=== PATIENT | female | born 1980 | race Caucasian/White ===

== ENCOUNTER → 2016-11-15 | Outpatient (CLI) | payer OTHER ==
[~2016-11-15] MED LIST: HAIRTAB5 PO; IBUP100SUS PO; MIRA33504 PO; PAXI20TA29 PO; PERCOCET PO; PRENTAB9 PO; VITA10002 PO
== END ==
LOC: M WUC 16:55
PROVIDERS: ATTEND Dentist
DX: Z72.9 Problem related to lifestyle, unspecified (principal)

== ENCOUNTER → 2017-01-09 | Outpatient (REF) | payer OTHER ==
[2017-01-09 13:14] LABS: BASO % 0.6 % (0.0-1.0); EOS # 0.1 K/mm3 (0.0-0.50); EOS % 1.7 % (0.0-3.0); LARGE UNSTAINED CELL # 0.1 K/mm3 (0.0-0.4); LARGE UNSTAINED CELL % 1.6 % (0.0-4.0); LYMPH # 1.4 K/mm3 (1.5-4.5); LYMPH % 34.2 % (24.0-44.0); MEAN CORPUSCULAR HEMOGLOBIN 31.2 pg (27.0-33.0); MEAN CORPUSCULAR HGB CONC 33.6 g/dl (32.0-36.5); MEAN CORPUSCULAR VOLUME 92.9 fl (80.0-96.0); MONO # 0.3 K/mm3 (0.0-0.8); MONO % 6.5 % (0.0-5.0); NEUTROPHILS # 2.2 K/mm3 (1.8-7.7); NEUTROPHILS % 55.4 % (36.0-66.0); PLATELET COUNT, AUTOMATED 371 k/mm3 (150-450)
[2017-01-09 13:51] LABS: ALBUMIN 4.1 GM/DL (3.2-5.2); ALBUMIN/GLOBULIN RATIO 1.46 (1.00-1.93); ALKALINE PHOSPHATASE 59 U/L (45-117); ALT/SGPT 16 U/L (12-78); ANION GAP 7 MEQ/L (8-16); AST/SGOT 12 U/L (15-37); BILIRUBIN,TOTAL 0.4 MG/DL (0.2-1.0); BLOOD UREA NITROGEN 12 MG/DL (7-18); CALCIUM LEVEL 9.3 MG/DL (8.5-10.1); CARBON DIOXIDE LEVEL 29 MEQ/L (21-32); CHLORIDE LEVEL 107 MEQ/L (98-107); CREATININE FOR GFR 0.61 MG/DL (0.55-1.02); GLOMERULAR FILTRATION RATE > 60.0 (>60); GLUCOSE, FASTING 72 MG/DL (70-105); MAGNESIUM LEVEL 2.4 MG/DL (1.8-2.4); POTASSIUM SERUM 4.5 MEQ/L (3.5-5.1); SODIUM LEVEL 143 MEQ/L (136-145); TOTAL PROTEIN 6.9 GM/DL (6.4-8.2)
== END ==
LOC: M LABNEURO 12:37
PROVIDERS: ATTEND Psychiatry & Neurology Neurology
DX: R42 Dizziness and giddiness (principal)

== ENCOUNTER 2017-08-20 07:01 | Day surgery (SDC) | payer OTHER ==
[2017-08-20] MEDS: LR 1,000 ML IV (07:45)
[2017-08-20] MEDS ORDERED: LIDOCAINE 1% MDV 20ML VIAL SQ (07:45)
[2017-08-20] MEDS ORDERED: MIDAZOLAM INJ 2 MG/2 ML VIAL (J2250) As Ordered (07:47)
[2017-08-20] MEDS ORDERED: fentaNYL 100 MCG/2 ML INJECTION (J3010) As Ordered (07:47)
[2017-08-20] MEDS ORDERED: SUCCINYLCHOLINE 100 MG/5 ML SYRINGE (J0330) As Ordered (08:18)
[2017-08-20] MEDS ORDERED: ROCURONIUM BROMIDE 50 MG/5 ML VIAL As Ordered (08:18)
[2017-08-20] MEDS ORDERED: LIDOCAINE 2% INJ 100 MG/5 ML SDV (FOR ANES.) As Ordered (08:18)
[2017-08-20] MEDS ORDERED: PROPOFOL 200 MG/20 ML VIAL As Ordered (08:18)
[2017-08-20] MEDS ORDERED: ONDANSETRON 4MG/2ML VIAL (J2405) As Ordered (08:50)
[2017-08-20] MEDS ORDERED: dexameTHASONE 4 MG/ML 1ML VIAL (J1100) As Ordered ×2 (08:50)
[2017-08-20] MEDS ORDERED: GLYCOPYRROLATE INJ 0.2 MG/ML 2 ML VIAL As Ordered (08:50)
[2017-08-20] MEDS ORDERED: PHENYLephrine HCL 500 MCG/5 ML (100MCG/ML) SYRINGE (J2370) As Ordered (08:51)
[2017-08-20] MEDS: BUPIVACAINE HCL 0.5% 10 ML VIAL As Ordered (08:56)
[2017-08-20] MEDS ORDERED: KETOROLAC 30 MG/ML VIAL (J1885) As Ordered (09:19)
[2017-08-20] MEDS ORDERED: IBUPROFEN 800 MG TAB PO (09:30)
[2017-08-20] MEDS ORDERED: PERCOCET 5MG/325MG TAB PO (09:30)
[2017-08-20] MEDS ORDERED: HYDROcodone/APAP LIQUID 7.5-325MG 15ML UDC (LORTAB ELIXIR) PO (09:30)
[2017-08-20] MEDS: KETOROLAC 30 MG/ML VIAL (J1885) IV (09:33)
[2017-08-20] MEDS: PERCOCET 5MG/325MG TAB PO (09:42)
[2017-08-20] MEDS ORDERED: ONDANSETRON 4MG/2ML VIAL (J2405) IV (09:45)
[2017-08-20] MEDS ORDERED: LR 1,000 ML IV (09:45)
[2017-08-20] MEDS ORDERED: HYDROmorphone HCL 1 MG/ML SYRINGE (J1170) IV (09:45)
[2017-08-20] MEDS ORDERED: fentaNYL 100 MCG/2 ML INJECTION (J3010) IV (09:45)
== END 2017-08-20 10:20 | disposition home or self-care (01) ==
LOC: M SDC 07:01
DX: J35.01 Chronic tonsillitis (principal); K58.9 Irritable bowel syndrome, unspecified
CPT/HCPCS: 42826

== ENCOUNTER 2020-09-26 15:45 | Emergency (ER) | payer OTHER ==
[~2020-09-26] VITALS: Ht 162.6 cm; Wt 60.9 kg
[~2020-09-26 15:45] MED LIST changes: +CYAN100049 PO; +IBUP100S44 PO; -IBUP100SUS PO; +OXYC1TAB23 PO; -PERCOCET PO; -VITA10002 PO
[2020-09-26] MEDS ORDERED: PANT40TA29 (15:58)
[2020-09-26] MEDS ORDERED: FLUORESCEIN OPHTH 1 MG STRIP OS ONE (18:15)
[2020-09-26] MEDS ORDERED: TETRACAINE 0.5% OPHTH SOLN 4ML OS ONE (18:15)
[2020-09-26] MEDS ORDERED: MOXI0.5S OS (18:49)
[2020-09-26] MEDS ORDERED: OFLOXACIN 0.3 % (OCUFLOX) OPTH SOL 5ML OS STA (18:55)
[2020-09-26 19:26] VITALS: BP 128/68
== END 2020-09-26 19:53 | disposition home or self-care (01) ==
LOC: M ED 15:45
DX: S05.02XA Injury of conjunctiva and corneal abrasion without foreign body, left eye, initial encounter (principal); X58.XXXA Exposure to other specified factors, initial encounter; Y92.89 Other specified places as the place of occurrence of the external cause; F17.210 Nicotine dependence, cigarettes, uncomplicated

== ENCOUNTER → 2020-10-20 | Outpatient (CLI) | payer OTHER ==
[~2020-10-20] MED LIST changes: +METHACHOLINE KIT (J7674) INH ONE; +MOXI0.5S OS; +PANT40TA29
--- NOTE | 2020-10-20 10:42 | PFTRPT ---
Site: [facility], [address], [place], [address] ID: [id number] Name: KIMBERLY DAMON Visit Date: 10/20/2020 Second ID: [id number] Referring Doctor: Blake Lazaro MD Reviewing Doctor: Mitul Heaton MD Data Processing Clerk: Roma SAMPSON RRT Age: 40 : 1980 Sex: Female Race: Height: 64.00 Inches Weight: 134.00 Lbs BSA: 1.65 Order IDs: [id number] Requested Test(s): <RESP-PFT.METH CHAL> Diagnosis: R06.00 of albuterol for post bronchodilator. Review Status: Not Reviewed Pre-Bronch Post-Bronch Pred Actual %Pred Actual %Chng SPIROMETRY FVC (L) 3.69 3.84 104 3.75 -2 FEV1 (L) 3.00 2.95 98 2.78 -5 FEV1/FVC (%) 82 77 93 74 -3 FEF 25% (L/sec) 5.44 5.50 101 5.37 -2 FEF 50% (L/sec) 4.19 3.03 72 2.57 -15 FEF 75% (L/sec) 1.65 1.06 63 0.75 -29 FEF 25-75% (L/sec) 3.10 2.43 78 1.99 -18 FEF Max (L/sec) 6.96 6.78 97 6.25 -7 FIVC (L) 3.62 3.67 1 FIF 50% (L/sec) 3.73 4.03 107 4.07 1 FIF Max (L/sec) 4.05 4.12 1 Expiratory Time (sec) 6.77 6.69 -1 Back Extrap Vol (L) 0.11 0.08 -24 Time To FEFmax (sec) 0.086 0.074 -14
== END ==
LOC: M CARPUL 09:39
PROVIDERS: ATTEND Allergy & Immunology Allergy
DX: R06.00 Dyspnea, unspecified (principal)
CPT/HCPCS: 94070; 95070; J7674

== ENCOUNTER 2020-11-13 09:53 | Emergency (ER) | payer OTHER ==
[~2020-11-13] VITALS: Ht 162.6 cm; Wt 60.7 kg
[~2020-11-13 09:53] MED LIST changes: -METHACHOLINE KIT (J7674) INH ONE
[2020-11-13] MEDS ORDERED: PLEC3TAB (09:59)
[2020-11-13 11:07] LABS: BASO % 0.7 % (0.0-1.0); EOS # 0.1 10^3/uL (0.0-0.5); EOS % 2.3 % (0.0-3.0); HEMATOCRIT 38.1 % (36.0-47.0); HEMOGLOBIN 12.7 g/dl (12.0-15.5); LYMPH # 1.4 10^3/uL (1.5-5.0); LYMPH % 32.6 % (24.0-44.0); MEAN CORPUSCULAR HEMOGLOBIN 30.8 pg (27.0-33.0); MEAN CORPUSCULAR HGB CONC 33.3 g/dl (32.0-36.5); MEAN CORPUSCULAR VOLUME 92.3 fl (80.0-96.0); MONO # 0.4 10^3/uL (0.0-0.8); MONO % 10.1 % (2.0-8.0); NEUTROPHILS # 2.3 10^3/uL (1.5-8.5); NEUTROPHILS % 53.8 % (36.0-66.0); PLATELET COUNT, AUTOMATED 348 10^3/uL (150-450); RED BLOOD COUNT 4.13 10^6/uL (4.00-5.40); WHITE BLOOD COUNT 4.3 10^3/uL (4.0-10.0)
[2020-11-13 11:26] LABS: ALBUMIN 3.9 GM/DL (3.2-5.2); ALT/SGPT 40 U/L (12-78); BILIRUBIN,DIRECT < 0.1 MG/DL (0.0-0.2); BILIRUBIN,TOTAL 0.3 MG/DL (0.2-1.0); BLOOD UREA NITROGEN 12 MG/DL (7-18); CALCIUM LEVEL 8.9 MG/DL (8.5-10.1); CARBON DIOXIDE LEVEL 30 MEQ/L (21-32); CHLORIDE LEVEL 109 MEQ/L (98-107); CREATININE FOR GFR 0.64 MG/DL (0.55-1.30); GLOMERULAR FILTRATION RATE > 60.0 (>58); GLUCOSE, FASTING 71 MG/DL (70-100); LIPASE 192 U/L (73-393); POTASSIUM SERUM 4.3 MEQ/L (3.5-5.1); SODIUM LEVEL 141 MEQ/L (136-145); TOTAL PROTEIN 6.5 GM/DL (6.4-8.2)
--- NOTE | 2020-11-13 11:35 | REP ---
INDICATION: lower abd pain, constipation. COMPARISON: None. TECHNIQUE: Two views FINDINGS: Gas and stool scattered in the colon without dilatation. No dilated small bowel loops or air-fluid levels. There is a paucity of gas in the small bowel overall which is a nonspecific finding. Few pelvic phleboliths are evident. There are no calcifications over the renal fossa the, expected course of the ureters or bladder that would be suggestive of nephroureterolithiasis. Metallic Essure implants are identified bilaterally. Visualized bones are unremarkable. IMPRESSION: 1. Essure implants in the pelvis bilaterally with a few pelvic phleboliths but no abnormal abdominal or pelvic calcifications. 2. Nonspecific gas pattern without obstruction, mass or free air. 3. Bones unremarkable. <Electronically signed by Javan Tafoya > 11/13/20 [id number]
--- NOTE | 2020-11-13 12:09 | REP ---
INDICATION: right lower abd pain r/o ovarian cyst. COMPARISON: KUB this TECHNIQUE: Transabdominal and endovaginal probes were utilized. Color Doppler of the ovaries also performed. FINDINGS: Bladder is under filled measuring 8.7 x 6.3 x 1.2 cm. Uterus is retroverted measuring 6.2 x 4.1 x 4.7 cm in greatest diameter. Endometrial stripe has a thickness of up to 14 mm there is a hypoechoic focus in the right-sided the uterus 1.6 x 1.5 cm it may reflect fibroid in the subserosal region. There is no abnormal calcification visible in the uterus. Trace amount of free fluid in the cul-de-sac. The left ovary is 1.9 x 1.6 x 1.4 cm with no focal abnormality. Color flow normal. Doppler shows resistive index 0.63. No adjacent free fluid to that ovary. The right ovary is 2.9 x 2.8 x 1.6 cm. It has a dominant follicle with some internal echoes and measuring 1.9 x 1.6 x 1.4 cm and Doppler shows resistive index of 0.67 this suggest a hemorrhagic follicle. I do not see fluid adjacent to the ovary but there is some in the cul-de-sac and a small volume. IMPRESSION: 1. Retroverted uterus with endometrial stripe up to 1.4 cm thickness with a 1.6 x 1.5 cm hypoechoic fibroid subserosal right uterine aspect. Trace fluid in the cul-de-sac. 2. Normal left ovary and ovarian Doppler. 3. Right ovary with a hemorrhagic follicle 1.9 x 1.6 x 1.4 cm but with normal Doppler tracing. No evidence for torsion. <Electronically signed by Javan Tafoya > 11/13/20 [id number]
[2020-11-13] MEDS ORDERED: ONDA4TAB6 PO (12:26)
[2020-11-13 12:38] VITALS: BP 121/64
== END 2020-11-13 12:40 | disposition home or self-care (01) ==
LOC: M ED 09:53
DX: N83.201 Unspecified ovarian cyst, right side (principal); K21.9 Gastro-esophageal reflux disease without esophagitis; K58.9 Irritable bowel syndrome, unspecified; Z79.899 Other long term (current) drug therapy; F17.210 Nicotine dependence, cigarettes, uncomplicated

== ENCOUNTER → 2020-12-20 | Outpatient (CLI) | payer OTHER ==
[~2020-12-20] MED LIST changes: +ONDA4TAB6 PO; +PLEC3TAB
== END ==
LOC: M LABSMTC 10:17
PROVIDERS: ATTEND Anesthesiology
DX: Z11.52 Encounter for screening for COVID-19 (principal)

== ENCOUNTER 2020-12-24 11:10 | Day surgery (SDC) | payer OTHER ==
[~2020-12-24] VITALS: Ht 162.6 cm; Wt 58.2 kg
[~2020-12-24 11:10] MED LIST changes: +LIDOCAINE 2% 100MG/5ML SDV (FOR ANES.) As Ordered ONE; +NS 1,000 ML IV ONE; +propofoL 200 MG/20 ML VIAL As Ordered ONE
--- NOTE | 2020-12-24 13:15 | ROOR ---
Patient Name: Lori Villagomez Procedure Date: 12/24/2020 12:55 PM Date of : 1980 Age: 40 Room: [facility] Gender: Female Note Status: Finalized Procedure: Upper GI endoscopy Indications: Abdominal pain, Heartburn Providers: Juan Daniel Palacios MD Referring MD: Margo Guzman Requesting Provider: Medicines: Monitored Anesthesia Care Complications: No immediate complications. Procedure: Pre-Anesthesia Assessment: - The heart rate, respiratory rate, oxygen saturations, blood pressure, adequacy of pulmonary ventilation, and response to care were monitored throughout the procedure. The Endoscope was introduced through the mouth, and advanced to the second part of duodenum. The upper GI endoscopy was accomplished without difficulty. The patient tolerated the procedure well. Findings: The examined esophagus was normal. The entire examined stomach was normal (a very small hiatal hernia is seen). Biopsies were taken with a cold forceps for Helicobacter pylori testing. The examined duodenum was normal. Biopsies for histology were taken with a cold forceps for evaluation of celiac disease. Impression: - Normal esophagus. - Very small hiatal hernia, otherwise normal stomach. Biopsied. - Normal examined duodenum. Biopsied. Recommendation: - Await pathology results. - Telephone endoscopist for pathology results in 2 weeks. - Continue present medications. Procedure Code(s): --- Professional --- 54464, Esophagogastroduodenoscopy, flexible, transoral; with biopsy, single or multiple Diagnosis Code(s): --- Professional --- R12, Heartburn R10.9, Unspecified abdominal pain CPT copyright 2019 [employer]. All rights reserved. The codes documented in this report are preliminary and upon transplant surgeon review may be revised to meet current compliance requirements. Juan Daniel Palacios MD Juan Daniel Palacios MD 12/24/2020 1:14:33 PM Electronically signed by Juan Daniel Palacios MD Number of Addenda: 0 Note Initiated On: 12/24/2020 12:55 PM Estimated Blood Loss: Estimated blood loss: none.
[2020-12-24] MEDS ORDERED: propofoL 200 MG/20 ML VIAL As Ordered ONE (13:22)
--- NOTE | 2020-12-24 13:30 | ROOR ---
Patient Name: Lori Villagomez Procedure Date: 12/24/2020 12:56 PM Date of : 1980 Age: 40 Room: [facility] Gender: Female Note Status: Finalized Procedure: Colonoscopy Indications: Generalized abdominal pain, Irritable bowel syndrome with constipation, Change in bowel habits, Occasional diarrhea Providers: Juan Daniel Palacios MD Referring MD: Margo Guzman Requesting Provider: Medicines: Monitored Anesthesia Care Complications: No immediate complications. Procedure: Pre-Anesthesia Assessment: - The heart rate, respiratory rate, oxygen saturations, blood pressure, adequacy of pulmonary ventilation, and response to care were monitored throughout the procedure. The Colonoscope was introduced through the anus and advanced to 10 cm into the ileum. The colonoscopy was performed without difficulty. The patient tolerated the procedure well. The quality of the bowel preparation was good. Findings: The perianal and digital rectal examinations were normal. Mild sigmoid diverticulosis and small internal hemorrhoids. The entire examined colon appeared normal. The terminal ileum appeared normal. Biopsies for histology were taken with a cold forceps from the entire colon for evaluation of microscopic colitis. Impression: - Mild sigmoid diverticulosis and small internal hemorrhoids. - The entire examined colon is normal. - The examined portion of the ileum was normal. - Biopsies were taken with a cold forceps from the entire colon for evaluation of microscopic colitis. - (Irritable Bowel Syndrome/IBS suspected.) Recommendation: - Telephone endoscopist for pathology results in 2 weeks. - Continue present medications. Procedure Code(s): --- Professional --- 88879, Colonoscopy, flexible; with biopsy, single or multiple Diagnosis Code(s): --- Professional --- R19.4, Change in bowel habit K58.1, Irritable bowel syndrome with constipation R10.84, Generalized abdominal pain CPT copyright 2019 [employer]. All rights reserved. The codes documented in this report are preliminary and upon animal bounty hunter review may be revised to meet current compliance requirements. Juan Daniel Palacios MD Juan Daniel Palacios MD 12/24/2020 1:30:28 PM Electronically signed by Juan Daniel Palacios MD Number of Addenda: 0 Note Initiated On: 12/24/2020 12:56 PM Estimated Blood Loss: Estimated blood loss: none.
[2020-12-24 14:07] VITALS: BP 101/57
== END 2020-12-24 14:08 | disposition home or self-care (01) ==
LOC: M OPP 11:10
PROVIDERS: ATTEND Internal Medicine Gastroenterology
DX: K58.1 Irritable bowel syndrome with constipation (principal); R10.9 Unspecified abdominal pain; R19.4 Change in bowel habit; K44.9 Diaphragmatic hernia without obstruction or gangrene; K31.89 Other diseases of stomach and duodenum; R12 Heartburn; Z79.899 Other long term (current) drug therapy

== ENCOUNTER → 2021-02-21 | Outpatient (CLI) | payer OTHER ==
[~2021-02-21] MED LIST changes: -LIDOCAINE 2% 100MG/5ML SDV (FOR ANES.) As Ordered ONE; -NS 1,000 ML IV ONE; -propofoL 200 MG/20 ML VIAL As Ordered ONE
--- NOTE | 2021-02-21 10:01 | REP ---
INDICATION: EPIGASTRIC PAIN. COMPARISON: None. TECHNIQUE: Ultrasound images of the right upper quadrant of the abdomen were obtained. FINDINGS: The liver is increased in echogenicity and size measuring 17.7 cm in vertical dimension in the midclavicular line. The gallbladder is normal. The gallbladder wall measures 2 mm in thickness. The common bile duct measures 2 mm in diameter. The visualized pancreas is unremarkable. The right kidney measures 9.3 x 4.5 x 4.1 cm. The renal parenchymal echogenicity is normal. There are no focal abnormalities. There is no hydronephrosis. IMPRESSION: 1. Enlarged fatty liver. 2. Otherwise unremarkable. <Electronically signed by Medhat Gallego > 02/21/21 0963
== END ==
LOC: M RAD 08:58
PROVIDERS: ATTEND Physician Assistant Medical
DX: R10.13 Epigastric pain (principal); R14.0 Abdominal distension (gaseous); K76.0 Fatty (change of) liver, not elsewhere classified

== ENCOUNTER → 2021-03-15 | Outpatient (CLI) | payer OTHER | LOC: M RAD 11:24 | PROVIDERS: ATTEND Physician Assistant Medical | DX: Z53.20 Procedure and treatment not carried out because of patient's decision for unspecified reasons (principal) ==

== ENCOUNTER → 2021-05-16 | Outpatient (CLI) | payer OTHER | LOC: M RAD 11:26 | PROVIDERS: ATTEND Physician Assistant Medical | DX: R10.13 Epigastric pain (principal); R68.81 Early satiety; R14.0 Abdominal distension (gaseous) | CPT/HCPCS: 78264; A9541 ==

== ENCOUNTER 2021-06-24 02:52 | Emergency (ER) | payer OTHER ==
[~2021-06-24] VITALS: Ht 162.6 cm; Wt 62.3 kg
[2021-06-24 02:53] VITALS: BP 132/70
[2021-06-24 03:48] LABS: APPEARANCE, URINE CLEAR (CLEAR); BACTERIA, URINE AUTO 1+ (NEGATIVE); BILIRUBIN, URINE AUTO NEGATIVE (NEGATIVE); BLOOD, URINE BLOOD 1+ (NEGATIVE); COLOR, URINE YELLOW (YELLOW); GLUCOSE, URINE (UA) AUTO NEGATIVE (NEGATIVE); KETONE, URINE AUTO NEGATIVE (NEGATIVE); LEUKOCYTE ESTERASE, URINE AUTO NEGATIVE (NEGATIVE); MUCUS, URINE SMALL (NEGATIVE); NITRITE, URINE AUTO NEGATIVE (NEGATIVE); PROTEIN, URINE AUTO NEGATIVE (NEGATIVE); RBC, URINE AUTO 3 /HPF (0-3); SPECIFIC GRAVITY URINE AUTO 1.009 (1.002-1.035); SQUAMOUS EPITHELIAL CELL UR AU 0 /HPF (0-6); UROBILINOGEN, URINE AUTO 0.2 mg/dL (0.0-2.0); WBC, URINE AUTO 0 /HPF (0-3)
== END 2021-06-24 04:35 | disposition left against medical advice (07) ==
LOC: M ED 02:52
DX: Z53.21 Procedure and treatment not carried out due to patient leaving prior to being seen by health care provider (principal)

== ENCOUNTER → 2022-01-11 | Outpatient (CLI) | payer OTHER ==
[~2022-01-11] MED LIST changes: +CYSTO-CONRAY II 17.2% 250ML VIAL (Q9958) As Ordered ONE
== END ==
LOC: M RADPRO 09:00
PROVIDERS: ATTEND Specialist
DX: R39.81 Functional urinary incontinence (principal); Z96.0 Presence of urogenital implants
CPT/HCPCS: 51610; 74430; Q9958

== ENCOUNTER 2022-07-03 10:58 | Emergency (ER) | payer OTHER ==
[~2022-07-03] VITALS: Ht 162.6 cm; Wt 65.0 kg
[~2022-07-03 10:58] MED LIST changes: -CYSTO-CONRAY II 17.2% 250ML VIAL (Q9958) As Ordered ONE; -PAXI20TA29 PO; +PAXI20TA30 PO
[2022-07-03 13:44] LABS: BASO % 0.5 % (0.0-1.0); EOS # 0.1 10^3/uL (0.0-0.5); EOS % 0.6 % (0.0-3.0); HEMATOCRIT 40.8 % (36.0-47.0); HEMOGLOBIN 13.7 g/dl (12.0-15.5); LYMPH # 1.9 10^3/uL (1.5-5.0); LYMPH % 24.7 % (24.0-44.0); MEAN CORPUSCULAR HEMOGLOBIN 31.1 pg (27.0-33.0); MEAN CORPUSCULAR HGB CONC 33.6 g/dl (32.0-36.5); MEAN CORPUSCULAR VOLUME 92.7 fl (80.0-96.0); MONO # 0.5 10^3/uL (0.0-0.8); MONO % 6.3 % (2.0-8.0); NEUTROPHILS # 5.2 10^3/uL (1.5-8.5); NEUTROPHILS % 67.6 % (36.0-66.0); PLATELET COUNT, AUTOMATED 348 10^3/uL (150-450); WHITE BLOOD COUNT 7.7 10^3/uL (4.0-10.0)
[2022-07-03 14:02] LABS: LIPASE 47 U/L (12-53)
[2022-07-03 14:08] LABS: ALBUMIN 3.9 G/DL (3.2-5.2); ALKALINE PHOSPHATASE 60 U/L (46-116); ALT/SGPT 11 U/L (7.0-40); AST/SGOT 17 U/L (<34); BILIRUBIN,DIRECT 0.1 MG/DL (<0.4); BILIRUBIN,TOTAL 0.5 MG/DL (0.3-1.2); BLOOD UREA NITROGEN 9 MG/DL (9-23); CALCIUM LEVEL 8.8 MG/DL (8.5-10.1); CARBON DIOXIDE LEVEL 26 MMOL/L (20-31); CHLORIDE LEVEL 103 MMOL/L (98-107); CREATININE FOR GFR 0.65 MG/DL (0.55-1.30); GLOMERULAR FILTRATION RATE > 60.0 (>58); GLUCOSE, FASTING 94 MG/DL (60-100); POTASSIUM SERUM 4.3 MMOL/L (3.5-5.1); SODIUM LEVEL 138 MMOL/L (136-145)
[2022-07-03] MEDS ORDERED: NS 1,000 ML IV ONE (14:10)
[2022-07-03] MEDS ORDERED: ISOVUE-370 76% 100ML VIAL As Ordered ONE (14:11)
[2022-07-03 15:44] LABS: TOTAL PROTEIN 6.5 G/DL (5.7-8.2)
[2022-07-03] MEDS ORDERED: FLUCONAZOLE 50MG TABLET PO ONE (17:25)
[2022-07-03 17:47] LABS: GC DNA AMPLIFICATION NEGATIVE (NEGATIVE)
[2022-07-03 18:38] VITALS: BP 135/77
== END 2022-07-03 18:35 | disposition home or self-care (01) ==
LOC: M ED 10:58
DX: R10.32 Left lower quadrant pain (principal); K21.9 Gastro-esophageal reflux disease without esophagitis
CPT/HCPCS: 36415; 74177; 76830; 76856; 80048; 80076; 81001; 83605; 83690; 85025; 87210; 87661; 87810; 87850; 93976; 99284; Q9967

== ENCOUNTER → 2022-12-25 | Day surgery (SDC) | payer OTHER ==
[~2022-12-25] VITALS: Ht 162.6 cm; Wt 63.0 kg
[~2022-12-25] MED LIST changes: +LIDOCAINE 2% 100MG/5ML SDV (FOR ANES.) As Ordered ONE; +NS 1,000 ML IV ONE; -PANT40TA29; +PANT40TA29 PO; -PLEC3TAB; +PLEC3TAB PO; +propofoL 200 MG/20 ML VIAL As Ordered ONE
[2022-12-25 11:34] VITALS: BP 127/72; TEMP 97.9; O2SAT 99
== END | disposition home or self-care (01) ==
LOC: M OPP 09:56
PROVIDERS: ATTEND Internal Medicine Gastroenterology
DX: K64.8 Other hemorrhoids (principal); K57.30 Diverticulosis of large intestine without perforation or abscess without bleeding; K63.3 Ulcer of intestine; K58.1 Irritable bowel syndrome with constipation; F17.290 Nicotine dependence, other tobacco product, uncomplicated; Z79.899 Other long term (current) drug therapy

== ENCOUNTER → 2023-02-17 | Outpatient (CLI) | payer OTHER ==
[~2023-02-17] MED LIST changes: -LIDOCAINE 2% 100MG/5ML SDV (FOR ANES.) As Ordered ONE; -NS 1,000 ML IV ONE; -propofoL 200 MG/20 ML VIAL As Ordered ONE
== END ==
LOC: M LAB 10:08
PROVIDERS: ATTEND Physician Assistant Medical
DX: R16.0 Hepatomegaly, not elsewhere classified (principal); E83.10 Disorder of iron metabolism, unspecified

== ENCOUNTER → 2023-04-05 | Outpatient (CLI) | payer OTHER ==
[~2023-04-05] MED LIST changes: +FAMO40TA3
[2023-04-05 16:32] LABS: FOLATE 18.58 NG/ML (>5.4)
[2023-04-07 13:09] LABS: IgG P18 AB Absent (.); IgG P23 AB Absent (.); IgG P28 AB Absent (.); IgG P30 AB Absent (.); IgG P39 AB Absent (.); IgG P41 AB Absent (.); IgG P45 AB Absent (.); IgG P66 AB Absent (.); IgG P93 AB Absent (.); IgM P23 AB Absent (.); IgM P39 AB Absent (.); IgM P41 AB Absent (.); LYME IgG WB INTERPRETATION Negative (.); LYME IgM WB INTERPRETATION Negative (.)
== END ==
LOC: M PLALAB 13:02
PROVIDERS: ATTEND Psychiatry & Neurology Neurology
DX: D51.9 Vitamin B12 deficiency anemia, unspecified (principal); Z11.9 Encounter for screening for infectious and parasitic diseases, unspecified

== ENCOUNTER 2023-04-16 12:30 | Day surgery (SDC) | payer OTHER ==
[~2023-04-16] VITALS: Ht 162.6 cm; Wt 60.8 kg
[~2023-04-16 12:30] MED LIST changes: +NS 1,000 ML IV ONE
[2023-04-16] MEDS ORDERED: fentaNYL 100 MCG/2 ML INJECTION As Ordered ONE (12:46)
[2023-04-16] MEDS ORDERED: propofoL 200 MG/20 ML VIAL As Ordered ONE (14:24)
[2023-04-16 14:39] VITALS: TEMP 98.7
[2023-04-16 15:00] VITALS: BP 102/66; O2SAT 100
== END 2023-04-16 15:04 | disposition home or self-care (01) ==
LOC: M OPP 12:30
PROVIDERS: ATTEND Internal Medicine Gastroenterology
DX: K57.30 Diverticulosis of large intestine without perforation or abscess without bleeding (principal); K63.5 Polyp of colon; R10.13 Epigastric pain; Z87.891 Personal history of nicotine dependence; Z79.1 Long term (current) use of non-steroidal anti-inflammatories (NSAID); Z79.899 Other long term (current) drug therapy

== ENCOUNTER 2023-05-07 09:18 | Emergency (ER) | payer OTHER ==
[~2023-05-07] VITALS: Ht 162.6 cm; Wt 62.4 kg
[~2023-05-07 09:18] MED LIST changes: -NS 1,000 ML IV ONE
[2023-05-07] MEDS ORDERED: HYDR-3363 (09:26)
[2023-05-07] MEDS ORDERED: RIZA5TAB2 (09:26)
[2023-05-07] MEDS ORDERED: NS 1,000 ML IV ONE (11:30)
[2023-05-07 11:59] LABS: BASO # 0.1 10^3/uL (0.0-0.2); BASO % 0.8 % (0.0-1.0); EOS # 0.1 10^3/uL (0.0-0.5); EOS % 1.3 % (0.0-3.0); HEMATOCRIT 39.5 % (36.0-47.0); HEMOGLOBIN 13.3 g/dl (12.0-15.5); LYMPH # 1.8 10^3/uL (1.5-5.0); LYMPH % 19.6 % (24.0-44.0); MEAN CORPUSCULAR HEMOGLOBIN 30.9 pg (27.0-33.0); MEAN CORPUSCULAR HGB CONC 33.7 g/dl (32.0-36.5); MEAN CORPUSCULAR VOLUME 91.9 fl (80.0-96.0); MONO # 0.6 10^3/uL (0.0-0.8); MONO % 6.9 % (2.0-8.0); NEUTROPHILS # 6.6 10^3/uL (1.5-8.5); NEUTROPHILS % 71.1 % (36.0-66.0); PLATELET COUNT, AUTOMATED 380 10^3/uL (150-450); WHITE BLOOD COUNT 9.2 10^3/uL (4.0-10.0)
[2023-05-07] MEDS ORDERED: ISOVUE-370 76% 100ML VIAL As Ordered ONE (11:59)
[2023-05-07] MEDS ORDERED: DEXA6TAB PO (13:16)
[2023-05-07] MEDS ORDERED: BENZ200C70 PO (13:16)
[2023-05-07 13:33] VITALS: BP 118/74; TEMP 98; O2SAT 99
== END 2023-05-07 13:34 | disposition home or self-care (01) ==
LOC: M ED 09:18
DX: U07.1 COVID-19 (principal); J84.9 Interstitial pulmonary disease, unspecified; K21.9 Gastro-esophageal reflux disease without esophagitis; K58.9 Irritable bowel syndrome, unspecified; G43.909 Migraine, unspecified, not intractable, without status migrainosus; J45.909 Unspecified asthma, uncomplicated; Z79.811 Long term (current) use of aromatase inhibitors; Z79.52 Long term (current) use of systemic steroids; Z79.899 Other long term (current) drug therapy
CPT/HCPCS: 36415; 71046; 71275; 80047; 85025; 86140; 99284; Q9967

== ENCOUNTER → 2023-06-09 | Outpatient (CLI) | payer OTHER ==
[~2023-06-09] MED LIST changes: +BENZ200C70 PO; +DEXA6TAB PO; +HYDR-3363; +RIZA5TAB2
[2023-06-09 11:27] LABS: HEMATOCRIT 40.8 % (36.0-47.0); HEMOGLOBIN 13.6 g/dl (12.0-15.5); MEAN CORPUSCULAR HEMOGLOBIN 30.7 pg (27.0-33.0); MEAN CORPUSCULAR HGB CONC 33.3 g/dl (32.0-36.5); MEAN CORPUSCULAR VOLUME 92.1 fl (80.0-96.0); PLATELET COUNT, AUTOMATED 369 10^3/uL (150-450); RED BLOOD COUNT 4.43 10^6/uL (4.00-5.40); WHITE BLOOD COUNT 4.3 10^3/uL (4.0-10.0)
[2023-06-09 11:43] LABS: INR 0.98; PROTHROMBIN TIME 12.7 SECONDS (12.5-14.5)
[2023-06-09 11:44] LABS: PARTIAL THROMBOPLASTIN TIME 24.8 SECONDS (24.8-34.2)
== END ==
LOC: M LAB 11:01
PROVIDERS: ATTEND Physician Assistant Medical
DX: R16.0 Hepatomegaly, not elsewhere classified (principal)

== ENCOUNTER → 2023-06-21 | Outpatient (CLI) | payer OTHER ==
[~2023-06-21] MED LIST changes: +LIDOCAINE 1% MDV 20ML VIAL As Ordered ONE
[2023-06-21 09:05] VITALS: TEMP 97.5
[2023-06-21 11:20] VITALS: BP 100/61; O2SAT 99
== END ==
LOC: M IRPRO 08:53
PROVIDERS: ATTEND Physician Assistant Medical
DX: R16.0 Hepatomegaly, not elsewhere classified (principal)

== ENCOUNTER → 2023-07-26 | Outpatient (CLI) | payer OTHER ==
[~2023-07-26] MED LIST changes: -LIDOCAINE 1% MDV 20ML VIAL As Ordered ONE
== END ==
LOC: M RAD 17:44
PROVIDERS: ATTEND Internal Medicine Pulmonary Disease
DX: R91.8 Other nonspecific abnormal finding of lung field (principal); J47.9 Bronchiectasis, uncomplicated

== ENCOUNTER → 2023-08-21 | Outpatient (CLI) | payer OTHER | LOC: M CARPUL 09:38 | PROVIDERS: ATTEND Internal Medicine Pulmonary Disease | DX: R91.8 Other nonspecific abnormal finding of lung field (principal) ==

== ENCOUNTER 2023-09-25 17:23 | Emergency (ER) | payer OTHER ==
[~2023-09-25] VITALS: Ht 162.6 cm; Wt 64.4 kg
[~2023-09-25 17:23] MED LIST changes: +ONDA-282 PO; -ONDA4TAB6 PO
[2023-09-25 18:07] LABS: BASO # 0.1 10^3/uL (0.0-0.2); BASO % 0.6 % (0.0-1.0); EOS # 0.1 10^3/uL (0.0-0.5); EOS % 0.7 % (0.0-3.0); HEMATOCRIT 41.3 % (36.0-47.0); HEMOGLOBIN 13.9 g/dl (12.0-15.5); LYMPH % 22.5 % (24.0-44.0); MEAN CORPUSCULAR HGB CONC 33.7 g/dl (32.0-36.5); MEAN CORPUSCULAR VOLUME 92.2 fl (80.0-96.0); MONO # 0.5 10^3/uL (0.0-0.8); MONO % 6.1 % (2.0-8.0); NEUTROPHILS # 6.2 10^3/uL (1.5-8.5); NEUTROPHILS % 69.9 % (36.0-66.0); PLATELET COUNT, AUTOMATED 389 10^3/uL (150-450); RED BLOOD COUNT 4.48 10^6/uL (4.00-5.40); WHITE BLOOD COUNT 8.9 10^3/uL (4.0-10.0)
[2023-09-25 18:25] LABS: LIPASE 53 U/L (12-53)
[2023-09-25 18:36] LABS: HCG, SERUM QUALITATIVE NEGATIVE (NEGATIVE)
[2023-09-25 18:37] LABS: ALBUMIN 4.4 G/DL (3.2-5.2); ALKALINE PHOSPHATASE 70 U/L (46-116); ALT/SGPT 19 U/L (7.0-40); AST/SGOT 10 U/L (<34); BILIRUBIN,DIRECT < 0.1 MG/DL (<0.4); BILIRUBIN,TOTAL 0.3 MG/DL (0.3-1.2); BLOOD UREA NITROGEN 11 MG/DL (9-23); CALCIUM LEVEL 9.8 MG/DL (8.5-10.1); CARBON DIOXIDE LEVEL 27 MMOL/L (20-31); CHLORIDE LEVEL 103 MMOL/L (98-107); CREATININE FOR GFR 0.74 MG/DL (0.55-1.30); GLOMERULAR FILTRATION RATE > 60.0 (>58); GLUCOSE, FASTING 91 MG/DL (60-100); POTASSIUM SERUM 3.6 MMOL/L (3.5-5.1); SODIUM LEVEL 137 MMOL/L (136-145); TOTAL PROTEIN 7.3 G/DL (5.7-8.2)
[2023-09-25 21:00] LABS: CK-MB VALUE MASS < 1.0 NG/ML (<3.6)
[2023-09-25 21:01] LABS: CPK CREATINE PHOSPHOKINASE 54 U/L (34-145); MB/CK RELATIVE INDEX 1.85 (< OR =4)
[2023-09-25 21:25] LABS: CK-MB VALUE MASS < 1.0 NG/ML (<3.6)
[2023-09-25] MEDS: GASTROGRAFIN SOLUTION 30ML PO SCH (21:30)
[2023-09-25 21:50] LABS: CPK CREATINE PHOSPHOKINASE 51 U/L (34-145); MB/CK RELATIVE INDEX 1.96 (< OR =4)
[2023-09-25] MEDS ORDERED: ISOVUE-370 76% 100ML VIAL As Ordered ONE (22:51)
[2023-09-26 00:18] VITALS: BP 118/74; TEMP 98; O2SAT 99
== END 2023-09-26 00:20 | disposition home or self-care (01) ==
LOC: M ED 17:23
DX: K21.9 Gastro-esophageal reflux disease without esophagitis (principal); R93.89 Abnormal findings on diagnostic imaging of other specified body structures; K58.9 Irritable bowel syndrome, unspecified; R00.1 Bradycardia, unspecified; F10.10 Alcohol abuse, uncomplicated; Z79.899 Other long term (current) drug therapy
CPT/HCPCS: 36415; 71045; 74177; 80048; 80076; 82550; 82553; 83690; 84484; 84703; 85025; 93005; 99284; Q9963; Q9967

== ENCOUNTER → 2023-11-30 | Outpatient (CLI) | payer OTHER ==
[~2023-11-30] MED LIST changes: +PROHANCE 279.3MG/ML 15ML VIAL ONE
== END ==
LOC: M PLAIMG 11:16
PROVIDERS: ATTEND Nurse Practitioner Family
DX: Z12.31 Encounter for screening mammogram for malignant neoplasm of breast (principal); Z80.3 Family history of malignant neoplasm of breast; Z80.49 Family history of malignant neoplasm of other genital organs
CPT/HCPCS: 77049; A9576

== ENCOUNTER → 2024-02-27 | Outpatient (CLI) | payer OTHER ==
[~2024-02-27] MED LIST changes: -PROHANCE 279.3MG/ML 15ML VIAL ONE
== END ==
LOC: M RAD 10:11
PROVIDERS: ATTEND Physician Assistant Medical
DX: R10.10 Upper abdominal pain, unspecified (principal); R11.2 Nausea with vomiting, unspecified; R14.0 Abdominal distension (gaseous)

== ENCOUNTER → 2024-03-01 | Outpatient (CLI) | payer OTHER ==
[2024-03-01 09:09] LABS: BASO % 0.5 % (0.0-1.0); EOS # 0.1 10^3/uL (0.0-0.5); EOS % 2.1 % (0.0-3.0); HEMATOCRIT 38.8 % (36.0-47.0); HEMOGLOBIN 13.1 g/dl (12.0-15.5); LYMPH # 1.5 10^3/uL (1.5-5.0); MEAN CORPUSCULAR HEMOGLOBIN 30.8 pg (27.0-33.0); MEAN CORPUSCULAR HGB CONC 33.8 g/dl (32.0-36.5); MEAN CORPUSCULAR VOLUME 91.1 fl (80.0-96.0); MONO # 0.5 10^3/uL (0.0-0.8); MONO % 9.1 % (2.0-8.0); NEUTROPHILS # 3.6 10^3/uL (1.5-8.5); NEUTROPHILS % 62.1 % (36.0-66.0); PLATELET COUNT, AUTOMATED 328 10^3/uL (150-450); RED BLOOD COUNT 4.26 10^6/uL (4.00-5.40); WHITE BLOOD COUNT 5.7 10^3/uL (4.0-10.0)
[2024-03-01 09:28] LABS: LIPASE 55 U/L (12-53)
[2024-03-01 09:30] LABS: ALBUMIN 3.7 G/DL (3.2-5.2); ALKALINE PHOSPHATASE 77 U/L (35-104); ALT/SGPT < 9 U/L (7.0-40); AMYLASE 99 U/L (30-118); AST/SGOT < 8 U/L (<34); BILIRUBIN,TOTAL 0.5 MG/DL (0.3-1.2); BLOOD UREA NITROGEN 13 MG/DL (9-23); CALCIUM LEVEL 9.4 MG/DL (8.5-10.1); CARBON DIOXIDE LEVEL 28 MMOL/L (20-31); CHLORIDE LEVEL 107 MMOL/L (98-107); CREATININE FOR GFR 0.76 MG/DL (0.55-1.30); GLOMERULAR FILTRATION RATE > 60.0 (>58); GLUCOSE, FASTING 98 MG/DL (60-100); POTASSIUM SERUM 4.5 MMOL/L (3.5-5.1); SODIUM LEVEL 140 MMOL/L (136-145); TOTAL PROTEIN 6.5 G/DL (5.7-8.2)
== END ==
LOC: M LAB 08:42
PROVIDERS: ATTEND Family Medicine
DX: R10.10 Upper abdominal pain, unspecified (principal)

== ENCOUNTER → 2024-03-05 | Outpatient (CLI) | payer OTHER ==
[~2024-03-05] MED LIST changes: +GASTROGRAFIN SOLUTION 30ML ONE; +ISOVUE-370 76% 100ML VIAL ONE
== END ==
LOC: M PLAIMG 08:55
PROVIDERS: ATTEND Physician Assistant Medical
DX: N89.8 Other specified noninflammatory disorders of vagina (principal); R10.10 Upper abdominal pain, unspecified; R11.2 Nausea with vomiting, unspecified; R19.7 Diarrhea, unspecified
CPT/HCPCS: 74177; Q9963; Q9967

== ENCOUNTER → 2024-04-11 | Outpatient (CLI) | payer OTHER ==
[~2024-04-11] MED LIST changes: +E-Z-GAS II EFFERVESCENT PACKET (SODIUM BICARB./CITRIC ACID/SIMETHICONE) As Ordered ONE; +E-Z-HD 98% w/w 340GM SUSP BTL As Ordered ONE; +E-Z-PAQUE 96% w/w SUSP 176GM BTL As Ordered ONE; -GASTROGRAFIN SOLUTION 30ML ONE; -ISOVUE-370 76% 100ML VIAL ONE
== END ==
LOC: M RAD 09:49
PROVIDERS: ATTEND Physician Assistant Medical
DX: R10.10 Upper abdominal pain, unspecified (principal); R11.2 Nausea with vomiting, unspecified

== ENCOUNTER → 2024-08-15 | Outpatient (CLI) | payer OTHER ==
[~2024-08-15] MED LIST changes: -E-Z-GAS II EFFERVESCENT PACKET (SODIUM BICARB./CITRIC ACID/SIMETHICONE) As Ordered ONE; -E-Z-HD 98% w/w 340GM SUSP BTL As Ordered ONE; -E-Z-PAQUE 96% w/w SUSP 176GM BTL As Ordered ONE
[2024-08-15 10:47] LABS: HEMATOCRIT 38.9 % (36.0-47.0); MEAN CORPUSCULAR HEMOGLOBIN 30.7 pg (27.0-33.0); MEAN CORPUSCULAR HGB CONC 33.4 g/dl (32.0-36.5); MEAN CORPUSCULAR VOLUME 91.7 fl (80.0-96.0); PLATELET COUNT, AUTOMATED 342 10^3/uL (150-450); RED BLOOD COUNT 4.24 10^6/uL (4.00-5.40); WHITE BLOOD COUNT 5.5 10^3/uL (4.0-10.0)
[2024-08-15 11:02] LABS: HEMOGLOBIN A1c 5.1 % (4.0-6.0)
[2024-08-15 11:18] LABS: ALBUMIN 3.7 G/DL (3.2-5.2); ALKALINE PHOSPHATASE 61 U/L (35-104); ALT/SGPT 13 U/L (7.0-40); AST/SGOT < 8 U/L (<34); BILIRUBIN,TOTAL 0.7 MG/DL (0.3-1.2); BLOOD UREA NITROGEN 13 MG/DL (9-23); CARBON DIOXIDE LEVEL 27 MMOL/L (20-31); CHLORIDE LEVEL 104 MMOL/L (98-107); CREATININE FOR GFR 0.71 MG/DL (0.55-1.30); GLOMERULAR FILTRATION RATE > 90.0 (>58); GLUCOSE, FASTING 79 MG/DL (60-100); POTASSIUM SERUM 4.5 MMOL/L (3.5-5.1); SODIUM LEVEL 139 MMOL/L (136-145); TOTAL PROTEIN 6.3 G/DL (5.7-8.2)
== END ==
LOC: M LAB 09:12
PROVIDERS: ATTEND Physician Assistant Medical
DX: K76.0 Fatty (change of) liver, not elsewhere classified (principal); R16.0 Hepatomegaly, not elsewhere classified

== ENCOUNTER → 2025-01-26 | Outpatient (CLI) | payer OTHER | LOC: M RAD 08:30 | PROVIDERS: ATTEND Physician Assistant Medical | DX: K76.0 Fatty (change of) liver, not elsewhere classified (principal); R16.0 Hepatomegaly, not elsewhere classified; R93.3 Abnormal findings on diagnostic imaging of other parts of digestive tract ==